=== PATIENT | female | born 1990 | race African-American/Black ===

== ENCOUNTER 2017-01-23 15:39 | Emergency (ER) | payer OTHER ==
[~2017-01-23] VITALS: Ht 160 cm; Wt 68.9 kg
[2017-01-23 15:55] VITALS: BP 127/76
--- NOTE | 2017-01-23 16:03 | PHYS DOC ---
Adult General Chief Complaint Chief Complaint: PAIN ON URINATION [facility] HPI Patient is a 26 year old female with no significant medical history who presents today complaining of dysuria and frequency for 1 day. Patient is also concerned she could have a yeast infection. She has not taken any antibiotics recently. She would like to be checked for yeast infection. Patient denies any concerns for STDs. Denies any chance she is . Review of Systems Review of Systems Constitutional: Denies fever or chills [] Eyes: Denies change in visual acuity, redness, or eye pain [] HENT: Denies nasal congestion or sore throat [] Respiratory: Denies cough or shortness of breath [] Cardiovascular: No additional information not addressed in HPI [] GI: Denies abdominal pain, nausea, vomiting, bloody stools or diarrhea [] : dysuria Musculoskeletal: Denies back pain or joint pain [] Integument: Denies rash or skin lesions [] Neurologic: Denies headache, focal weakness or sensory changes [] Endocrine: Denies polyuria or polydipsia [] Allergies Allergies Allergies Coded Allergies Type Severity Reaction Last Updated Verified No Known Drug Allergies 01/23/17 No Physical Exam Physical Exam Constitutional: Well developed, well nourished, no acute distress, non-toxic appearance. [] HENT: Normocephalic, atraumatic, bilateral external ears normal, oropharynx moist, no oral exudates, nose normal. [] Eyes: PERRLA, EOMI, conjunctiva normal, no discharge. [] Neck: Normal range of motion, no tenderness, supple, no stridor. [] Cardiovascular:Heart rate regular rhythm, no murmur [] Lungs & Thorax: Bilateral breath sounds clear to auscultation [] Abdomen: Bowel sounds normal, soft, no tenderness, no masses, no pulsatile masses. [] Pelvic exam External pelvic appears normal, cervix is closed, no CMT, no adnexal tenderness , trace amount of white discharge in the vaginal vault. Skin: Warm, dry, no erythema, no rash. [] Back: No tenderness, no CVA tenderness. [] Extremities: No tenderness, no cyanosis, no clubbing, ROM intact, no edema. [] Neurologic: Alert and oriented X 3, normal motor function, normal sensory function, no focal deficits noted. [] Psychologic: Affect normal, judgement normal, mood normal. [] Current Patient Data Vital Signs Vital Signs Date Time Temp Pulse Resp B/P (MAP) Pulse Ox O2 Delivery O2 Flow Rate FiO2 01/23/17 15:55 98.2 85 16 98 Room Air 98.2 Lab Values Laboratory Tests Test 01/23/17 16:05 Urine Collection Type Unknown Urine Color Yellow Urine Clarity Cloudy Urine pH 5.5 Urine Specific [place] 1.025 Urine Protein Negative mg/dL (NEG-TRACE) Urine Glucose (UA) Negative mg/dL (NEG) Urine Ketones (Stick) Negative mg/dL (NEG) Urine Blood Moderate (NEG) Urine Nitrite Positive (NEG) Urine Bilirubin Negative (NEG) Urine Urobilinogen Dipstick 0.2 mg/dL (0.2 mg/dL) Urine Leukocyte Esterase Small (NEG) Urine RBC 3-5 /HPF (0-2) Urine WBC 20-40 /HPF (0-4) Urine Bacteria Many /HPF (0-FEW) Urine Test Negative (NEG) Microbiology 01/23/17 Wet Prep - Final, Complete EKG EKG [] Radiology/Procedures Radiology/Procedures [] Course & Med Decision Making Course & Med Decision Making Pertinent Labs and Imaging studies reviewed. (See chart for details) This is a 26-year-old female patient who presents to the ED with complaints of dysuria and frequency and would like to be checked for yeast infection as well. Negative urine hCG, urine positive for UTI. Wet prep positive for bacterial vaginosis. Discharged with cephalexin, Pyridium, ibuprofen and Flagyl. Follow- up with PCP in 1-2 weeks. Provided return precautions and discharged in stable condition. Dragon Disclaimer Dragon Disclaimer This electronic medical record was generated, in whole or in part, using a voice recognition dictation system. Departure Departure Impression: Primary Impression: Bacterial vaginosis Additional Impression: Urinary tract infection Disposition: 01 HOME, SELF-CARE Condition: STABLE Patient Instructions: Bacterial Vaginosis, [id number], Urinary Tract Infection Additional Instructions: You were seen for urinary tract infection and bacterial vaginosis. Please complete your antibiotics. We sent you home with Diflucan for possible yeast infection from all the antibiotics you will be on. Take it as prescribed. Take Tylenol/Motrin for pain or fever. Push fluids. Follow-up with your doctor in 1- 2 weeks. Come back to the ED if symptoms worsen. Scripts Ibuprofen (Ibuprofen) 800 Mg Tablet 800 MG PO Q8HRS, #20 TAB Prov: AGUEDA MEZA APRN 01/23/17 Phenazopyridine Hcl (PYRIDIUM) 100 Mg Tablet 100 MG PO TID, #9 TAB Prov: AGUEDA MEZA APRN 01/23/17 Fluconazole (DIFLUCAN) 150 Mg Tablet 1 TAB PO ONCE, #1 TAB 1 Refill Take one tablet today and repeat in 7 days or sooner if you have yeast infection symptoms. Prov: AGUEDA MEZA APRN 01/23/17 Cephalexin (CEPHALEXIN) 500 Mg Tablet 1 TAB PO BID, #14 TAB Prov: AGUEDA MEZA APRN 01/23/17 Metronidazole (FLAGYL) 500 Mg Tablet 1 TAB PO BID, #14 TAB Prov: AGUEDA MEZA APRN 01/23/17 Problem Qualifiers Additional Impression: Urinary tract infection Urinary tract infection type: site unspecified Hematuria presence: without hematuria Qualified Codes: N39.0 - Urinary tract infection, site not specified AGUEDA MEZA APRN Jan 23, 2017 16:03
[2017-01-23 16:11] LABS: BILIRUBIN,URINE NEGATIVE (NEG); GLUCOSE,URINE NEGATIVE (NEG); NITRITE,URINE POSITIVE (NEG); PH,URINE 5.5; PROTEIN,URINE NEGATIVE (NEG-TRACE); UROBILINOGEN,URINE 0.2 mg/dL (0.2 mg/dL)
[2017-01-23 16:22] LABS: BACTERIA,URINE MANY /HPF (0-FEW); WBC,URINE 20-40 /HPF (0-4)
[2017-01-23 16:26] LABS: NEG OBC UR NEG; POS OBC UR POS
[2017-01-23] MEDS ORDERED: METR500T PO (16:34)
[2017-01-23] MEDS ORDERED: PHEN100T82 PO (16:34)
[2017-01-23] MEDS ORDERED: IBUP800T19 PO (16:34)
[2017-01-23] MEDS ORDERED: CEPH500T PO (16:34)
[2017-01-23] MEDS ORDERED: FLUC150T PO (16:34)
== END 2017-01-23 16:40 | disposition home or self-care (01) ==
LOC: ER 15:39
DX: N76.0 Acute vaginitis (principal); N39.0 Urinary tract infection, site not specified
CPT/HCPCS: 81001; 81025; 87086; 99284; Q0111; 87491; 87591